=== PATIENT | male | born 1945 | race Caucasian/White ===

== ENCOUNTER 2019-03-13 05:20 | Observation (INO) ==
[2019-03-07 11:11] LABS: HEMATOCRIT 43.8 % (42.0-52.0); MCH 30.9 PG (27-31); MCHC 34.2 g/dL (33-37); MCV 90.3 FL (81-99); MPV 9.1 FL (7.4-10.4); RBC 4.85 XMIL (4.7-6.1); RDW 13.1 % (11.5-14.5); WBC 7.33 X1000 (4.8-10.8)
[2019-03-07 12:22] LABS: AGAP 11; BUN 14 mg/dL (8-22); CALCIUM 9.2 mg/dL (8.8-10.2); CHLORIDE 98 mmol/L (98-107); COSMO 273; ESTIMATED GFR > 60; GLUCOSE 77 mg/dL (70-104); POTASSIUM 4.2 mmol/L (3.5-5.1); SODIUM 137 mmol/L (136-145); TCO2 28 mmol/L (25-35)
--- NOTE | 2019-03-11 15:24 | HISTORY AND PHYSICAL ---
CHIEF COMPLAINT: Right renal mass. HISTORY OF PRESENT ILLNESS: Mr. Malin is a 74-year-old who presented to the [facility] complaining of gross hematuria after working out in the yard. He notes that he had weakened stream and denied any clot passage. The patient takes a 325 mg aspirin and has been on Flomax and finasteride for a number of years now. He denies any voiding complaints. The patient underwent a CT scan which showed a possible mass in the right upper pole of the kidney as well as cystoscopy. On cystoscopy the patient had evidence of erythematous areas in the bladder concerning for possible malignancy and underwent biopsies which were negative. In talking with him I recommended treatment of his right renal mass versus observation due to the size and location and the patient desired to undergo surgical intervention. Denies any prior abdominal surgeries. PAST MEDICAL HISTORY: 1. Arthritis. 2. BPH. 3. History of kidney stones. 4. Hypertension. 5. Right renal mass. PAST SURGICAL HISTORY: 1. Cervical surgery. 2. Elbow surgery. 3. Knee arthroscopy. 4. Meniscus repair. HOME MEDICATIONS: 1. Aspirin 325 mg. 2. Baclofen. 3. Finasteride. 4. Flomax. 5. Gabapentin. 6. Metoprolol. 7. Mobic. 8. Procardia. 9. Telmisartan/hydrochlorothiazide. ALLERGIES: 1. Azithromycin. 2. Methylprednisolone. FAMILY HISTORY: There is a family history of kidney failure. Denies history of renal malignancy. SOCIAL HISTORY: Denies alcohol, tobacco, or illicit drug use. PHYSICAL EXAMINATION: VITAL SIGNS: Temperature 97.6, heart rate 61, blood pressure 144/85, oxygen saturation 96% on room air. GENERAL: No acute distress. Resting comfortably in bed. Alert and oriented x 3. HEENT: Normocephalic, atraumatic. Pupils are equal, round, reactive to light. NECK: Trachea midline with no palpable masses. RESPIRATORY: Good respiratory effort without audible wheezing or rales. ABDOMEN: Soft, nontender, nondistended. No palpable masses or hepatosplenomegaly. CARDIOVASCULAR: Regular rate and rhythm. GENITOURINARY: No suprapubic tenderness. No CVA tenderness. SKIN: No skin lesions or rashes. MUSCULOSKELETAL: Moves all extremities. NEUROLOGICAL: Gross motor and sensory intact. LABORATORY DATA: White blood cell count is 7.3, hemoglobin 15, hematocrit 43.8, and platelets 235. Sodium is 137, potassium 4.2, chloride 98, bicarb 28, BUN 14, creatinine 1.0, and glucose 77. IMAGING: CT abdomen and pelvis imaging was reviewed and showed a suspicious 3.7 cm mass in the upper pole of the right kidney that had some calcifications present with minimal enhancement. The patient also has a small left lower pole renal cyst as well as a prostate that protrudes into the base of the bladder. ASSESSMENT AND PLAN: Mr. Malin is a 74-year-old with benign prostatic hypertrophy, history of gross hematuria, arthritis, and hypertension who presents in consultation regarding his gross hematuria and right renal mass. I talked with him and I recommended treatment for his renal mass as it seems to be getting larger and concerning for malignancy. The size of the mass measures approximately 3.7 cm present in the upper pole of the right kidney. I talked with him regarding surgical interventions including partial nephrectomy, ablation, or a radical nephrectomy. Due to the size and location I think it would be amenable to a partial nephrectomy. I talked with him regarding intervention and he elected to proceed. We discussed the risks of procedure including bleeding, infection, damage to surrounding structures, damage to the ureter or bowel as well as recurrence of disease and the need for any secondary procedures. We discussed the role of conversion to a radical nephrectomy due to bleeding and the need for postoperative drainage. After a long discussion the patient desired proceeding with surgical intervention with the plan to perform surgery on 03/13/2019. cc: Arsenio Ventura MD MTDD
[2019-03-13] MEDS ORDERED: LR 1,000 ML ONE ×3 (05:46→14:43)
[2019-03-13] MEDS ORDERED: KEFZOL 1 GM/D5W 2 GM/100 ML IVPB ONE (05:46)
[2019-03-13] MEDS ORDERED: SENSORCAINE-MPF 0.5%/EPI 1:200,000 ONE (06:34)
[2019-03-13] MEDS ORDERED: DIPRIVAN 1% ONE (06:38)
[2019-03-13] MEDS ORDERED: NORCURON ONE ×2 (07:00→10:14)
[2019-03-13] MEDS ORDERED: EPHEDRINE ONE (07:16)
[2019-03-13] MEDS ORDERED: QUELICIN (DOSE) ONE (07:30)
[2019-03-13] MEDS ORDERED: XYLOCAINE-MPF 2% ONE (07:30)
[2019-03-13] MEDS ORDERED: ROBINUL ONE ×3 (07:50→13:31)
[2019-03-13] MEDS ORDERED: OFIRMEV 1000 MG/ISOTONIC SOLN 1,000 MG/100 ML BOTTLE ONE (07:53)
[2019-03-13] MEDS ORDERED: FENTANYL ONE ×2 (08:09→12:43)
[2019-03-13 08:24] LABS: URINE SOURCE CATH
[2019-03-13 08:38] LABS: BILIRUBIN URINE NEGATIVE (NEGATIVE); BLOOD URINE NEGATIVE (NEGATIVE); COLOR YELLOW; GLUCOSE URINE NEGATIVE (NEGATIVE); KETONE URINE NEGATIVE (NEGATIVE); LEUKOCYTES URINE NEGATIVE (NEGATIVE); NITRITE URINE NEGATIVE (NEGATIVE); PROTEIN URINE NEGATIVE (NEGATIVE); SP GRAVITY URINE 1.019; TURBIDITY URINE CLEAR (CLEAR); UROBILINOGEN URINE NORMAL (NORMAL)
[2019-03-13 08:41] LABS: UR EPITHELIAL CELLS <10 /HPF (<10); URINE BACTERIA NEGATIVE /HPF; URINE RBC <10 /HPF (<10); URINE WBC <10 /HPF (<10)
[2019-03-13] MEDS ORDERED: DECADRON ONE (10:26)
[2019-03-13] MEDS ORDERED: ZOFRAN ONE ×2 (10:26→15:18)
[2019-03-13] MEDS ORDERED: MANNITOL ONE (13:23)
[2019-03-13] MEDS ORDERED: NEOSTIGMINE ONE ×2 (13:35→13:36)
[2019-03-13] MEDS ORDERED: DILAUDID ONE (13:39)
[2019-03-13 15:13] LABS: HEMATOCRIT 40.7 % (42.0-52.0); HEMOGLOBIN 13.8 g/dL (14.0-18.0); MCH 30.7 PG (27-31); MCHC 33.9 g/dL (33-37); MCV 90.4 FL (81-99); MPV 8.9 FL (7.4-10.4); RBC 4.5 XMIL (4.7-6.1); RDW 13.1 % (11.5-14.5); WBC 16.72 X1000 (4.8-10.8)
[2019-03-13 15:35] LABS: CALCIUM 8.6 mg/dL (8.8-10.2); CREATININE 1.2 mg/dL (0.7-1.2); POTASSIUM 4.2 mmol/L (3.5-5.1)
[2019-03-13] MEDS ORDERED: MORPHINE IV PRN (15:54)
[2019-03-13] MEDS: LR 1,000 ML IV SCH ×2 (16:30→23:09)
[2019-03-13] MEDS: KEFZOL 1 GM/D5W 1 GM/50 ML IVPB IV SCH ×2 (16:30→23:09)
[2019-03-13] MEDS: LABETALOL IV PRN ×2 (17:26→20:17)
[2019-03-13] MEDS: ZOFRAN IV PRN (17:37)
[2019-03-13] MEDS: PERIDEX MT SCH (20:17)
[2019-03-13] MEDS: COLACE PO SCH (20:17)
[2019-03-13] MEDS: NORCO-7.5 PO PRN (23:09)
--- NOTE | 2019-03-14 00:04 | OPERATIVE NOTE ---
PROCEDURE DATE: 03/13/2019 PREOPERATIVE DIAGNOSIS: Right renal mass. POSTOPERATIVE DIAGNOSIS: Right renal mass. PROCEDURE PERFORMED: 1. Robotic-assisted laparoscopic right partial nephrectomy. 2. Intraoperative ultrasound. SURGEON: Arsenio Ventura MD COMMERCIAL LOAN CLOSER: Jose Day MD SPECIMEN: Removed right renal mass. COMPLICATIONS: Tumor spillage. ESTIMATED BLOOD LOSS: 600 mL DRAINS: 1. A 16-Maltese Gan catheter. 2. Ascencion drain. ANESTHESIA: General endotracheal intubation. INDICATIONS FOR PROCEDURE: Mr. Malin is a 74-year-old who presented to the [facility]rology Clinic complaining of gross hematuria. The patient had acute episode of blood in his urine after working outside. The patient was evaluated with blood in his urine, and underwent cystoscopy and CT urogram. On CT urogram, the patient had a renal mass measuring approximately 3.9 cm in the upper pole of the right kidney. The patient's cystoscopy showed evidence of erythematous areas inside the bladder, which were biopsied previously and were negative. Due to persistence of the tumor, I had recommend discussion of observation versus ablation, versus partial nephrectomy versus radical nephrectomy. The patient desired to undergo partial nephrectomy due the size and location. I discussed the risks including bleeding, infection, damage to surrounding structures, urinoma, arteriovenous malformations or fistula, inability to perform procedure, or recurrence of the cancer. After thorough discussion, the patient elected to proceed. DESCRIPTION OF PROCEDURE: After informed consent was obtained, the patient was brought to the operating room and placed on the operating table in supine position. The patient received preoperative antibiotics and underwent endotracheal intubation. The patient then had placement of an indwelling catheter, 16-Maltese, which was placed to gravity drainage, with return of clear yellow urine. The patient was then placed into a modified flank position with the right side up. All pressure points were padded. The patient was adhered to the bed with tape as well as adherent straps. The patient was tested at the extent of mobility, and was stable. At this point the patient was then prepped and draped in the usual sterile fashion. A preoperative time-out was performed, with all parties in agreement including anesthesia, surgical and nursing staff. At this point, using a Veress needle an area above the umbilicus was then visualized and then went into the abdomen itself. Then a drop test was performed on 2 separate occasions, with good rapid flow into the belly. At this point CO2 insufflation was started at low flow with low pressures, and then increased to normal pressure. Pneumoperitoneum was increased to 15 mmHg. The abdomen distended appropriately, and then our surgical incisions were marked. The patient had an upper pole tumor, and this was area was triangulated. The skin was then infiltrated with 0.25% Marcaine with epinephrine, and our camera port was then placed with a 12 Maltese in the midclavicular line. Once this was placed, the camera was then passed through the port, with no obvious injury during port placement or Veress needle. The entirety of the abdomen was inspected, with no significant adhesions. At this point the rest of our robotic trocars were placed for our robotic arms as well as a 5 Maltese for our liver tractor and a 12 Maltese for our school health assistant port in the lower midclavicular line. Once all these were placed, the patient was then placed into 90 degrees, right side up, and the robotic platform was then docked. All instruments were inserted and the surgical procedure began. The white line of Toldt was visualized, and using sharp and blunt electrocautery I was able to excise this area and reflect the colon medially. The patient's appendix was seen to be adherent in the upper quadrant of the abdomen, and this was able to be reflected back easily. Once the colon was reflected all the way down to the pelvis, a small amount of adhesions were seen around the liver itself, which required sharp dissection with electrocautery. This allowed for our liver retractor to be placed, with a locking grasper on the lateral wall. We continued to dissect into the upper pole to extend this superiorly until we had good mobility of the liver itself. The gallbladder was present and uninvolved. This was then carried medially until the duodenum was visualized, and this had kocherization. The patient had a significant amount of fat overlying the duodenum but ultimately I was able to retract it completely. The vena cava was then seen. Arising from the vena cava, our renal vein was visualized. Using our resector, I was able to isolate the renal vein and then passed a Vesseloop around the vein itself. This allowed for dissection of our renal artery posteriorly. The patient had early branching of the renal artery, but I was able to visualize this and dissect medially to the site of the main branch. Another Vesseloop was then passed around this. Once these were isolated, attention was then placed to dissecting out our mass itself. Gerota was then opened and I then dissected down to the capsule itself. The patient had a large amount of adherent sticky fat, which had to be dissected off. I spent over 2- /12 hours just dissecting this tissue away from the mass itself. It was quite adherent. Ultimately I was able to isolate the mass itself using intraoperative ultrasound, which showed a mass arising from the upper pole of the kidney. I was able to circumscribe this and see the edges of the tumor itself. This was marked out, scoring the renal capsule. We measured several times with ultrasound to ensure adequate dimension of the tumor. The tumor measured approximately 4 cm from the top to the depth. It was approximately 2.5 cm wide. At this point, once it had been circumscribed completely, attention was then placed to placing our bulldog clamps. These were placed first around the renal artery and then the renal vein. Mannitol was given prior to clamping, at which point we began our dissection, cutting into the renal capsule to dissect out the tumor. The tumor base was quite friable and I was able to try to dissect this off; however, in the process of dissecting off at the base of the tumor it seemed to be friable, and a small amount of tumor was seen there. I was able to dissect out the completion of the mass. I then went back and actually removed the lower part of the kidney itself, where prior tumor was seen. No significant tumor spillage was seen at the end of the procedure, and the base seemed to be without any obvious tumor seen there. At this point we obtained 3-0 V-Loc sutures with Hem-o-adalid and then began running the base to assist in managing base of the mass bleeding. A small collecting system infiltration was seen and this was closed primarily. Two 3-0 V-Loc were then used, and once this was completed we began using 0 V-Loc with Hem-o-adalid on each side to approximate the renal capsule. This approximated nicely. Five total zeros were used. Each needle was then removed after placement, and then were tightened to approximate the renal capsule. Good hemostasis was then seen, and then our bulldogs were removed. Total ischemia time was 38 minutes, due to the complexity of the tumor as well as removal of the base of the tumor and tumor spillage. Once the bulldogs were removed, good hemostasis was seen. We then placed Surgiflo and Surgicel SNoW to the area, which allowed for good hemostasis. Gerota was then reapproximated over our defect, and these were adhered to one another using Hem-O-Adalid clips. Once this completed, the liver was then dropped over the residual kidney. Both of the Vesseloops were removed from our renal vein and renal artery. All instrument and suture counts were correct. All instruments were removed, and a drain was then passed through the lower right quadrant port with a Ascencion drain. This was positioned overlying the kidney itself. It was placed to gravity drainage and sewed in with a nylon suture. The tumor had been previously placed in a bag with residual fragments, and this was planned to be extracted through our school health assistant port. At this point all ports were removed and the school health assistant port was extended, and the bag was then completely removed and sent to Pathology. We then closed our camera port using 0 Vicryl in a [id number] fashion. We then proceeded to use a Maxon suture to close the school health assistant port fascia overlying the rectus. This came together nicely, and then the superficial area was closed using Vicryl. All skin incisions were then closed using 4-0 Monocryl in a running fashion. Covidien skin glue was applied over top of the incision, and our drain was then placed to bulb suction. The patient was then awoken and was taken to recovery in stable condition. The patient will be monitored in the hospital with indwelling catheter. Hopefully this will be removed tomorrow, and we will keep drain until ITZEL creatinine is low. Dr. Day was the school health assistant for the entirety of the procedure and was present for all sutton portions of the procedure. He was crucial to performing the procedure including operative dissection, as well as resection of the tumor itself. cc: Arsenio Ventura MD [facility]
[2019-03-14] MEDS ORDERED: LIORESAL PO PRN (03:33)
[2019-03-14] MEDS: KEFZOL 1 GM/D5W 1 GM/50 ML IVPB IV SCH (06:23)
[2019-03-14] MEDS: LR 1,000 ML IV SCH ×2 (06:23→16:15)
[2019-03-14] MEDS: FLONASE NAS PRN ×2 (06:26→10:04)
[2019-03-14 07:10] LABS: HEMATOCRIT 36.6 % (42.0-52.0); HEMOGLOBIN 12.2 g/dL (14.0-18.0); MCH 30.9 PG (27-31); MCHC 33.3 g/dL (33-37); MCV 92.7 FL (81-99); MPV 9.3 FL (7.4-10.4); RBC 3.95 XMIL (4.7-6.1); RDW 13.3 % (11.5-14.5); WBC 12.9 X1000 (4.8-10.8)
[2019-03-14 07:24] LABS: AGAP 10; BUN 14 mg/dL (8-22); CALCIUM 8.7 mg/dL (8.8-10.2); CHLORIDE 103 mmol/L (98-107); COSMO 280; CREATININE 1.1 mg/dL (0.7-1.2); ESTIMATED GFR > 60; GLUCOSE 106 mg/dL (70-104); SODIUM 140 mmol/L (136-145); TCO2 27 mmol/L (25-35)
--- NOTE | 2019-03-14 08:04 | PROGRESS NOTE ---
DATE: 03/14/2019 SUBJECTIVE: Postoperative day 1 from robotic-assisted laparoscopic right partial nephrectomy with ultrasound guidance. The patient overall did well overnight. His catheter has been draining clear yellow urine with no hematuria or sediment. The patient's Ascencion drain continues to drain with 495 cc recorded yesterday. A very thin reddish amount of fluid seen within the ITZEL today. The patient has a small amount of pain at the site of the drain, but no other abdominal pain. He denies any distention, no nausea, no vomiting, no fevers or chills. Slight tachycardia. The patient has been off his metoprolol. Blood pressure is 144/69 today. The patient denies any lower extremity swelling. OBJECTIVE: Vital signs: Temperature 98.6, heart rate 97, blood pressure 144/69, oxygen 98% on room. General: No acute distress. Resting comfortably in bed. Alert and oriented x3. Respiratory: Good respiratory effort without audible wheezing or rales. Abdomen: Soft. No significant tenderness. Slightly distended. Genitourinary: Urethral catheter in place draining clear yellow urine. A small amount of scrotal edema which is improving. A ITZEL drain is present in the right lower quadrant. Skin: All incisions appear to be well healed with no drainage. Covidien skin glue present overlying them. LABORATORY DATA: Postoperative labs showed a white blood cell count of 12.9, hemoglobin of 12.2, hematocrit 36.6. Sodium 140, Potassium 4.0, Chloride 103, Bicarbonate 27, BUN 14, Creatinine 1.1, Glucose 106. ASSESSMENT AND PLAN: Mr. Malin is postoperative day 1 from a robotic-assisted laparoscopic right partial nephrectomy. The case was difficult with prolonged dissection around the tumor itself. The patient overall seems to be doing well. His Rico drain is putting out light red material with approximately 495cc in the drain postoperative. The patient remains afebrile. He is slightly tachycardic, but has been off his metoprolol for 36 hours now. Would plan to start a low- dose metoprolol this morning and then give him another dose this afternoon, would split up his dosing. If hemoglobin and hematocrit are stable, would consider anticoagulation with Lovenox. I encouraged him to be ambulatory today. We will continue with home medications. Encouraged him to use his incentive spirometer. We will advance diet to GI soft. Continue with pain control and perioperative antibiotics. We will monitor overnight. If the ITZEL drain output decreases, would consider ITZEL creatinine in the morning and removal of his ITZEL drain. We will continue to monitor. Likely will have to become and patient for over 48 hours in the hospital. cc: Arsenio Ventura MD MTDD
[2019-03-14] MEDS ORDERED: HEPARIN SUBQ SCH (08:45)
[2019-03-14] MEDS: LOVENOX SUBQ SCH (09:59)
[2019-03-14] MEDS: ROBAXIN PO SCH ×2 (10:01→22:12)
[2019-03-14] MEDS: PROSCAR PO SCH (10:02)
[2019-03-14] MEDS: LOPRESSOR PO SCH ×2 (10:02→22:12)
[2019-03-14] MEDS: SENOKOT PO SCH ×2 (10:02→22:11)
[2019-03-14] MEDS: COLACE PO SCH ×2 (10:02→22:12)
[2019-03-14] MEDS: FLOMAX PO SCH (10:02)
[2019-03-14] MEDS: FISH OIL CONCENTRATE PO SCH ×2 (10:03→22:11)
[2019-03-14] MEDS: ADALAT CC PO SCH (10:03)
[2019-03-14] MEDS: NEURONTIN PO SCH ×2 (10:03→22:12)
[2019-03-14] MEDS: PERIDEX MT SCH ×2 (10:04→22:13)
[2019-03-14] MEDS ORDERED: LOPRESSOR PO SCH (21:00)
[2019-03-15] MEDS: ZOFRAN IV PRN (03:40)
[2019-03-15] MEDS: LR 1,000 ML IV SCH ×2 (03:42→04:27)
[2019-03-15] MEDS: NORCO-7.5 PO PRN (04:25)
[2019-03-15 05:16] LABS: CREATININE BODY FLUID 1.1 mg/dL
[2019-03-15 07:31] LABS: HEMATOCRIT 35.6 % (42.0-52.0); HEMOGLOBIN 11.8 g/dL (14.0-18.0); MCH 30.5 PG (27-31); MCHC 33.1 g/dL (33-37); MPV 9.3 FL (7.4-10.4); RBC 3.87 XMIL (4.7-6.1); WBC 11.31 X1000 (4.8-10.8)
[2019-03-15 07:43] LABS: AGAP 8; BUN 14 mg/dL (8-22); CALCIUM 8.4 mg/dL (8.8-10.2); CHLORIDE 100 mmol/L (98-107); COSMO 273; ESTIMATED GFR > 60; GLUCOSE 116 mg/dL (70-104); POTASSIUM 4.1 mmol/L (3.5-5.1); SODIUM 136 mmol/L (136-145); TCO2 28 mmol/L (25-35)
--- NOTE | 2019-03-15 08:31 | PROGRESS NOTE ---
DATE: 03/15/2019 SUBJECTIVE: Postoperative day 2 from right robotic-assisted laparoscopic partial nephrectomy with intraoperative ultrasound. The patient has done well overnight. He denies any nausea, vomiting. The patient has been having a low-grade temperature. T-max overnight was 101.4 degrees. The patient responded at 99.4 degrees on the next check 2 hours later without any medication. Temperature this morning is 100.3 degrees. He feels like his abdominal pain is minimal. He has only taken 2 pain pills since admission. The patient has been passing flatus and was in a chair for most of the day yesterday and says he walked around his room. He denies any swelling, shortness of breath or chest pain. Tolerating PO intake yesterday. OBJECTIVE: Vital signs: Temperature 100.3 degrees, heart rate 82, blood pressure 138/77, oxygen saturation 98% on room air. General: No acute distress. Resting comfortably in bed. Alert and oriented x3. Respiratory: Good respiratory effort without audible wheezing or rales. Abdomen: Soft, nontender, nondistended. Abdominal incisions are well healed with Covidien skin glue over top of incisions. A ITZEL drain is present in the right lower quadrant with thin serous fluid. Lower extremities: No evidence of lower extremity edema. LABORATORY DATA: WBC 11.3, hemoglobulin 11.8, hematocrit 35.6, platelets 190. Sodium 136, potassium 4.1, chloride 100, bicarbonate 28, BUN 14, creatinine 1.0. The patient had a ITZEL creatinine sent which returned at 1.1. ASSESSMENT AND PLAN: Mr. Malin is a 74-year-old who is postoperative day 2 from robotic-assisted laparoscopic right partial nephrectomy. The patient has done relatively well. He was able tolerate p.o. intake yesterday. He said he is passing flatus. A Ascencion drain has decreased output with 300 recorded yesterday and appears to be mostly serous fluid. The patient has been voiding without issue. Denies any nausea or vomiting. The patient did have a low-grade temperature overnight at 101.4 degrees. The patient's temperature this morning was 100.3 degrees at 4 a.m. The 7 a.m. vitals have not been recorded yet. The patient is not tachycardic and blood pressures are within normal limits and clinically looks very good. Recommend to follow up a.m. labs and vital signs this morning. If remains afebrile, would consider discharge later today. However, if he continues to have fevers or white blood cell count significantly increases, would need to be observed. Encouraged him to be ambulatory today, continue his incentive spirometer, p.o. intake as tolerated. The patient has been on Lovenox for anticoagulation. Continue his home medication. We will monitor and make a decision later today regarding further planning. cc: Arsenio Ventura MD MTDD
[2019-03-15] MEDS: COLACE PO SCH (10:25)
[2019-03-15] MEDS: NEURONTIN PO SCH (10:25)
[2019-03-15] MEDS: LOPRESSOR PO SCH (10:26)
[2019-03-15] MEDS: FLOMAX PO SCH (10:26)
[2019-03-15] MEDS: SENOKOT PO SCH (10:26)
[2019-03-15] MEDS: PROSCAR PO SCH (10:26)
[2019-03-15] MEDS: LOVENOX SUBQ SCH (10:27)
[2019-03-15] MEDS: ROBAXIN PO SCH (10:27)
[2019-03-15] MEDS: ADALAT CC PO SCH (10:29)
[2019-03-15] MEDS: PERIDEX MT SCH (10:29)
[2019-03-15] MEDS ORDERED: FISH OIL CONCENTRATE PO SCH (10:33)
[2019-03-15 11:11] VITALS: BP 158/77
== END 2019-03-15 13:24 | disposition home or self-care (01) ==
LOC: OR 05:20 → 4N 05:20
PROVIDERS: ADMIT Urology; ATTEND Urology